=== PATIENT | female | born 1985 | race Caucasian/White ===

== ENCOUNTER 2017-11-18 18:51 | Emergency (ER) | payer OTHER ==
[2017-11-18] MEDS ORDERED: Ondansetron HCl/PF 4 MG/2 ML Vial ONE (19:46)
[2017-11-18] MEDS ORDERED: Meclizine HCl 25 MG TAB ONE (19:50)
== END 2017-11-18 21:10 | disposition home or self-care (01) ==
LOC: SCSER 18:51
DX: H81.10 Benign paroxysmal vertigo, unspecified ear (principal); F41.9 Anxiety disorder, unspecified
CPT/HCPCS: 96361; 96374; J2405

== ENCOUNTER 2022-12-29 07:52 | Outpatient (CLI) | payer OTHER | END 2022-12-29 07:53 | disposition home or self-care (01) | LOC: ULT 07:52 | PROVIDERS: ATTEND Obstetrics & Gynecology | DX: R10.11 Right upper quadrant pain (principal) | CPT/HCPCS: 76705 ==